=== PATIENT | male | born 1980 | race Caucasian/White ===

== ENCOUNTER 2018-11-18 14:16 | Emergency (ER) | END 2018-11-18 20:46 | disposition home or self-care (01) ==

== ENCOUNTER 2019-01-12 16:30 | Inpatient (IN) | payer OTHER, BC ==
[~2019-01-12] VITALS: Ht 167.6 cm; Wt 78.9 kg
[~2019-01-12 16:30] MED LIST: IBUP-1542 PO
[2019-01-12] MEDS ORDERED: ACETAMINOPHEN 325 MG TAB PO STA (16:56)
[2019-01-12] MEDS ORDERED: ALBUTEROL 0.083% (NEB) 2.5 MG/3 ML AMP NEB STA (16:56)
[2019-01-12] MEDS ORDERED: SODIUM CHLORIDE 0.9% 1L BAG IV* STA (16:56)
[2019-01-12] MEDS ORDERED: CEFEPIME 2GM/50 ML (PMX) 50 ML IVPB STA (16:56)
[2019-01-12] MEDS: VANCOMYCIN 1 GM (PMX) 250 ML IVPB ONE ×2 (17:30→18:06)
--- NOTE | 2019-01-12 19:06 | ERD ---
ER Documentation Chief Complaint Chief Complaint palpitations and sob since last night, sent by oncologist MARY KATE This is a 38-year-old man with a history of myeloma being treated with oral chemotherapy and immunotherapy. He states that he developed a cough with fever 3 days ago and he saw his doctor who today told him to come to the ER. He saw the doctor just prior to arrival. The patient on Friday went to urgent care where he was given some antibiotics and prednisone. Patient was evaluated today and sent here because he had a fever with low oxygen saturation. The patient states she is short of breath when he tries to walk or lay down. He has no short of breath when he is at rest. He has had a productive cough with yellow productive sputum for 3 days now no chest pain no GI symptoms no focal neurological complaints ROS All systems reviewed and are negative except as per history of present illness. Medications Home Meds Active Scripts Ibuprofen* (Motrin*) 600 Mg Tab, 600 MG PO Q8 PRN for PAIN AND/OR INFLAMMATION, #30 TAB Prov:RACHELE GARCIA MD 11/18/18 Allergies Allergies: Coded Allergies: No Known Allergy (Unverified , 11/18/18) PMhx/Soc History of Surgery: No Anesthesia Reaction: No Hx Neurological Disorder: No Hx Respiratory Disorders: No Hx Cardiac Disorders: No Hx Psychiatric Problems: No Hx Miscellaneous Medical Probl: Yes (MYELOMA) Hx Alcohol Use: No Hx Substance Use: No Hx Tobacco Use: No Smoking Status: Never smoker FmHx Family History: No coronary disease Physical Exam Vitals Vital Signs Date Temp Pulse Resp B/P (MAP) Pulse Ox O2 O2 Flow FiO2 Time Delivery Rate 01/12/19 98.8 155 18 129/86 95 Nasal 3.0 18:30 (100) Cannula 01/12/19 146 22 97 Nasal 2.0 17:59 Cannula 01/12/19 98.5 17:21 01/12/19 Nasal 2 17:05 Cannula 01/12/19 101.2 158 22 158/87 91 16:38 (110) Physical Exam Const: Well-developed, well-nourished Head: Atraumatic, normocephalic Eyes: Normal Conjunctiva, PERRLA, EOMI, normal sclera, no nystagmus ENT: Normal External Ears, Nose and Mouth, moist mucus membranes. Neck: Full range of motion. No meningismus, no lymphadenopathy. Resp: [Decreased breath sounds in both bases Cardio: Tachycardia, no murmurs, S1 S2 present Abd: Soft, non tender x 4, non distended. Normal bowel sounds, no guarding or rebound, no pulsitile abdominal masses or bruits Skin: No petechiae or rashes, no ecchymosis , no maculopapular rash Back: No midline or flank tenderness Ext: No cyanosis, or edema, FROM x 4, normal inspection, neurovascularly intact x 4 Neur: Awake and alert, STR 5/5 x 4, sensation intact x 4, no focal findings, cerebellum intact Psych: Normal Mood and Affect Result Diagram: 01/12/19 1708 01/12/19 170 Results 24 hrs Laboratory Tests Test 01/12/19 17:08 01/12/19 17:15 01/12/19 17:20 White Blood Count 7.8 10^3/ul Red Blood Count 3.13 10^6/ul Hemoglobin 9.7 g/dl Hematocrit 30.1 % Mean Corpuscular Volume 96.2 fl Mean Corpuscular Hemoglobin 31.0 pg Mean Corpuscular 32.2 g/dl Hemoglobin Concent Red Cell Distribution Width 13.9 % Platelet Count 355 10^3/UL Mean Platelet Volume 9.0 fl Immature Granulocytes % 0.800 % Neutrophils % 62.8 % Lymphocytes % 21.5 % Monocytes % 13.7 % Eosinophils % 0.8 % Basophils % 0.4 % Nucleated Red Blood Cells % 0.0 /100WBC Immature Granulocytes # 0.060 10^3/ul Neutrophils # 4.9 10^3/ul Lymphocytes # 1.7 10^3/ul Monocytes # 1.1 10^3/ul Eosinophils # 0.1 10^3/ul Basophils # 0.0 10^3/ul Nucleated Red Blood Cells # 0.0 10^3/ul Prothrombin Time 13.9 Sec Prothrombin Time Ratio 1.1 INR International 1.06 Normalized Ratio Activated Partial Thromboplast 33.9 Sec Time Sodium Level 139 mmol/L Potassium Level 4.2 mmol/L Chloride Level 101 mmol/L Carbon Dioxide Level 26 mmol/L Anion Gap 12 Blood Urea Nitrogen 6 mg/dl Creatinine 0.69 mg/dl Est Glomerular Filtrat > 60 mL/min Rate mL/min Glucose Level 99 mg/dl Calcium Level 10.2 mg/dl Total Bilirubin 0.2 mg/dl Direct Bilirubin 0.00 mg/dl Indirect Bilirubin 0.2 mg/dl Aspartate Amino 21 IU/L Transf (AST/SGOT) Alanine 31 IU/L Aminotransferase (ALT/SGPT) Alkaline Phosphatase 107 IU/L Troponin I < 0.012 ng/ml Total Protein 8.1 g/dl Albumin 4.7 g/dl Globulin 3.40 g/dl Albumin/Globulin Ratio 1.38 POC Venous Lactate 1.7 mmol/L Urine Color YELLOW Urine Clarity SLIGHTLY CLOUDY Urine pH 5.0 Urine Specific [place] 1.023 Urine Ketones TRACE mg/dL Urine Nitrite NEGATIVE mg/dL Urine Bilirubin NEGATIVE mg/dL Urine Urobilinogen NEGATIVE mg/dL Urine Leukocyte Esterase NEGATIVE Marla/ul Urine Microscopic RBC 0 /HPF Urine Microscopic WBC 2 /HPF Urine Mucus FEW /HPF Urine Hemoglobin 1+ mg/dL Urine Glucose NEGATIVE mg/dL Urine Total Protein 2+ mg/dl Current Medications Medications Dose Sig/Gregory Start Time Status Last (Trade) Ordered Route PRN Stop Time Admin Dose Reason Admin Sodium 2,290 ml BOLUS OVER 2 01/12/19 DC 01/12/19 Chloride HOURS STAT 16:56 17:30 (NS) IV* 01/12/19 16:59 650 mg ONCE STAT 01/12/19 DC Acetaminophen PO 16:56 (Tylenol 01/12/19 16:59 Tab) Cefepime HCl 50 ml @ ONCE STAT 01/12/19 DC 01/12/19 100 mls/hr IVPB 16:56 17:45 01/12/19 17:25 Vancomycin 250 ml @ ONCE ONCE 01/12/19 DC 01/12/19 HCl 125 mls/hr IVPB 17:00 18:06 01/12/19 18:59 Albuterol 7.5 mg ONCE STAT 01/12/19 DC 01/12/19 (Proventil NEB 16:56 17:58 0.083% (Neb)) 01/12/19 16:59 Procedures/MDM MR #: [id number] DOS: 01/12/19 165 Ordering MD: UMANG MENDES DO Location: E/R Room/Bed: PROCEDURE: XR Chest. CLINICAL INDICATION: Chest pain TECHNIQUE: Single AP view of the chest was obtained COMPARISON: CHEST 11/18/2018 FINDINGS: Heart is normal in size. Mediastinum is unremarkable. Right greater than left basilar patchy opacity. Costophrenic angles are clear. No pneumothorax. No acute osseous abnormality. IMPRESSION: Right greater than left basilar atelectasis or pneumonia. RPTAT: PP Physician Su Date Time Electronically viewed and signed by Thad Arenas Physician on 01/12/2019 17:48 ME/ CC: UMANG MENDES DO [id number] Code sepsis was called however the patient's lactic acid is 1.7. He does show bibasilar atelectasis/pneumonia. He was hypoxic on arrival at 91 and is 97 on nasal cannula. Due to his immunocompromise state with cancer and hypoxia with fever and cough we will admitted to the hospital. He did receive sepsis protocol IV fluids as well as cefepime and vancomycin. Will admit to panel. Patient is nontoxic and well-appearing Departure Diagnosis: Primary Impression: Bilateral pneumonia Pneumonia type: due to unspecified organism Lung location: lower lobe of lung Qualified Codes: J18.1 - Lobar pneumonia, unspecified organism Condition: Stable UMANG MENDES DO Jan 12, 2019 19:06
[2019-01-12] MEDS ORDERED: SOD CHLORIDE 0.9% 1,000 ML IV SCH (19:11)
[2019-01-12] MEDS ORDERED: LEVALBUTEROL (NEB) 1.25 MG/0.5 ML AMP INH STA (19:22)
[2019-01-12] MEDS ORDERED: ACETAMINOPHEN 325 MG TAB PO PRN ×2 (19:30→20:00)
[2019-01-12] MEDS ORDERED: ONDANSETRON 4 MG INJ IV PRN (19:30)
--- NOTE | 2019-01-12 19:56 | HP ---
Date/Time of Note Date/Time of Note DATE: 01/12/19 TIME: 19:46 Assessment/Plan VTE Prophylaxis SCD applied (from Nsg): No SCD contraindicated: other (no) Pharmacological prophylaxis: NA/contraindicated Pharm contraindication: low risk/ambulating Lines/Catheters IV Catheter Type (from Nrsg): Saline Lock Assessment/Plan Assessment/Plan 38 yo man with multiple myeloma on chemotherapy and immunotherapy presents with hypoxia, tachycardia, and chest infiltrate #Hypoxia #Infiltrate on CXR #Tachycardia - Differential: Sepsis from pneumonia vs PE vs hyperviscosity. Latter is less likely with normal protein gap. - Will get CTPA. - Empiric cefepime and vancomycin for possible pseudomonas and MRSA. - Fluid down on exam. Will bolus and continue IV fluids. - Will get echo #Multiple myeloma - Outpatient oncology followup. Dispo: Admit to tele DVT: Pending CTPA results GI: None Result Diagram: 01/12/19170701/12/191707 HPI/ROS Admit Date/Time Admit Date/Time Jan 12, 2019 Hx of Present Illness Mr. Borges is a pleasant 38 yo man with recently diagnosed myeloma who presents with cough and shortness of breath. He was diagnosed with multiple myeloma 2 months ago. Since then he's been on doxyrubicin, dexamethasone, and bortezomib. Last cycle was Dec 22. He does not take any medications regularly. About 2 weeks ago he reports having "chest congestion" with lots of nasal mucous production. During this time he began using two pillow at night. For 3 days he reports dry cough. He also reports R rib pain with deep inspiration. This morning he noticed shortness of breath doing minor activities like talking quickly on the phone. He called his oncologist who told him to go to the emergency room. In the ED he was febrile to 101.2, tachy to 150s (normal sinus on EKG), BP 129/86, saturating mid 90s on 3L NC but dyspneic. CXR shows R basilar infiltrate vs atelectasis. Anemic to 9.7, otherwise labs unremarkable. ROS He denies recent fever, chills, night sweats, weight loss, dysphagia, sore throat, nausea, vomiting, abdominal pain, abdominal distension, chest pain/pressure/palpitations, diarrhea, constipation, melena, dysuria, hematuria. PMH/Family/Social Past Medical History Multiple Myeloma on chemotherapy and immunotherapy Medications Current Medications Sodium Chloride 1,000 ml @ 80 mls/hr [id number] IV ; Start 01/12/19 at 19:11; Stop 01/13/19 at 07:40 Ondansetron HCl (Zofran Inj) 4 mg ER BRIDGE PRN IV NAUSEA/VOMITING; Start 01/12/19 at 19:30; Stop 01/13/19 at 19:29 Acetaminophen (Tylenol Tab) 650 mg ER BRIDGE PRN PO .MILD PAIN 1-3 OR TEMP; Start 01/12/19 at 19:30; Stop 01/13/19 at 19:29 Sodium Chloride 1,000 ml @ 75 mls/hr [id number] IV ; Start 01/12/19 at 19:40; Status UNV IV Flush (NS 3 ml) 3 ml PER PROTOCOL IV ; Start 01/12/19 at 20:00; Status UNV Acetaminophen (Tylenol Tab) 650 mg Q6H PRN PO .PAIN 1-3 OR TEMP; Start 01/12/19 at 20:00; Status UNV Coded Allergies: No Known Allergy (Unverified , 11/18/18) Past Surgical History Denies Social History Alcohol Use: none Smoking Status: Never smoker Drug Use: none Exam/Review of Systems Vital Signs Vitals Vital Signs Date Temp Pulse Resp B/P (MAP) Pulse Ox O2 O2 Flow FiO2 Time Delivery Rate 01/12/19 98.8 155 18 129/86 95 Nasal 3.0 18:30 (100) Cannula Exam Exam Gen: Well built man in some discomfort Eyes: PERRL, no icterus HEENT: Moist mucous membranes, clear oropharynx, no pharyngeal erythema Neck: No JVD. No lymphadenopathy. Card: Tachy, no murmurs Pulm: Clear to auscultation bilaterally. Abd: Soft, nontender, nondistended. Ext: Bilateral ankles with superficial ulcers and deformity. Skin: warm, dry, well perfused. FRANCISCA MACIAS MD Jan 12, 2019 19:56
[2019-01-12] MEDS ORDERED: SOD CHLORIDE 0.9% 100 ML ONE (19:59)
[2019-01-12] MEDS ORDERED: IOHEXOL 100 ML ONE (20:00)
[2019-01-12] MEDS ORDERED: NACL 0.9% 3 ML SYG IV SCH (20:00)
[2019-01-12] MEDS ORDERED: IOHEXOL 350MG/ML 50 ML BTL ONE (20:00)
[2019-01-12] MEDS ORDERED: VANCOMYCIN IV PER PHARMACY XX SCH (20:00)
[2019-01-12] MEDS ORDERED: PRED20TA PO (20:43)
[2019-01-12] MEDS ORDERED: ALBU18HF INHALATION (20:43)
[2019-01-12 20:52] VITALS: PULSE 153
[2019-01-12 21:00] VITALS: BP 114/77; PULSE 152; RESP 20
[2019-01-12 21:53] VITALS: Ht 167.6 cm; Wt 78.9 kg
[2019-01-12] MEDS ORDERED: VANCOMYCIN 500 MG (PMX) 100 ML IVPB SCH (22:30)
[2019-01-12] MEDS: SOD CHLORIDE 0.9% 1,000 ML IV SCH (22:35)
[2019-01-13] VITALS (12 sets, daily range): BP systolic 109–127; BP diastolic 74–85; PULSE 114–131; RESP 16–20
[2019-01-13] MEDS: CEFEPIME 2GM/50 ML (PMX) 50 ML IVPB SCH ×4 (00:43→21:05)
[2019-01-13] MEDS ORDERED: GUAIFENESIN 20 MG/ML 5ML CUP PO ONE ×2 (05:30→21:30)
[2019-01-13] MEDS: VANCOMYCIN 1 GM 250 ML IVPB SCH ×3 (06:01→22:21)
[2019-01-13] MEDS ORDERED: morphine 2 MG INJ IV PRN (09:30)
[2019-01-13] MEDS ORDERED: HYDROCODONE/APAP (5/325) TAB PO PRN (09:30)
[2019-01-13] MEDS: SOD CHLORIDE 0.9% 1,000 ML IV SCH (10:20)
[2019-01-13] MEDS: ENOXAPARIN 40 MG/0.4 ML SYG SC SCH (10:27)
[2019-01-13] MEDS: HYDROCODONE/APAP (10/325) TAB PO PRN ×2 (13:46→21:03)
--- NOTE | 2019-01-13 14:52 | PN ---
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 - Encouraged patient to use opioid analgesics as needed - PE ruled out on CTPA - Will continue empiric cefepime and vancomycin for possible pseudomonas and MRSA. - continue IV fluids. - Now on room air - Will also get physical therapy. #Sternal fracture #Vertebral compression fractures - Outpatient ortho followup. #Multiple myeloma - Outpatient oncology followup. DVT: Lovenox GI: None Result Diagram: 01/13/1945201/13/19452 Subjective 24 Hr Interval Summary Free Text/Dictation No acute overnight events. Heart rate has gradually decreased from 150 down to 120. He is aware of vertebral fractures and follows an orthopedic surgeon. He continues to have pain with deep inspiration. Off nasal cannula to room air, breathing comfortably. Exam/Review of Systems Exam Vitals Vital Signs Date Temp Pulse Resp B/P (MAP) Pulse Ox O2 O2 Flow FiO2 Time Delivery Rate 01/13/19 124 12:21 01/13/19 98.7 18 116/85 93 Nasal 11:51 (95) Cannula 01/13/19 2.0 08:00 Intake and Output 01/12/19 01/12/19 01/13/19 1515:00 23:00 07:00 IntakeIntake Total 2540 ml 1680 ml OutputOutput Total 600 ml 2000 ml BalanceBalance 1940 ml -320 ml Exam Gen: Well built man in some discomfort Eyes: PERRL, no icterus HEENT: Moist mucous membranes, clear oropharynx, no pharyngeal erythema Neck: No JVD. No lymphadenopathy. Card: Tachy, no murmurs Chest: Very tender mid sternum. Pulm: Very diminished respiratory expansion. Abd: Soft, nontender, nondistended. Ext: Bilateral ankles with superficial ulcers and deformity. Skin: warm, dry, well perfused. Results Results 24hrs Laboratory Tests Test 01/12/19 17:08 01/12/19 17:15 01/12/19 17:20 01/12/19 19:24 White Blood Count 7.8 Red Blood Count 3.13 L Hemoglobin 9.7 L Hematocrit 30.1 L Mean Corpuscular 96.2 Volume Mean Corpuscular 31.0 Hemoglobin Mean Corpuscular 32.2 Hemoglobin Concen t Red Cell 13.9 Distribution Width Platelet Count 355 # Mean Platelet 9.0 Volume Immature 0.800 H Granulocytes % Neutrophils % 62.8 Lymphocytes % 21.5 Monocytes % 13.7 H Eosinophils % 0.8 Basophils % 0.4 Nucleated Red 0.0 Blood Cells % Immature 0.060 H Granulocytes # Neutrophils # 4.9 Lymphocytes # 1.7 Monocytes # 1.1 H Eosinophils # 0.1 Basophils # 0.0 Nucleated Red 0.0 Blood Cells # Prothrombin Time 13.9 Prothrombin Time 1.1 Ratio INR International 1.06 Normalized Ratio Activated 33.9 Partial Thrombopl ast Time Sodium Level 139 Potassium Level 4.2 Chloride Level 101 Carbon Dioxide 26 Level Anion Gap 12 Blood Urea 6 L Nitrogen Creatinine 0.69 Est Glomerular > 60 Filtrat Rate mL/min Glucose Level 99 Calcium Level 10.2 Total Bilirubin 0.2 Direct Bilirubin 0.00 Indirect 0.2 Bilirubin Aspartate Amino 21 Transf (AST/SGOT) Alanine 31 Aminotransferase (ALT/SGPT) Alkaline 107 Phosphatase Troponin I < 0.012 Total Protein 8.1 Albumin 4.7 Globulin 3.40 H Albumin/Globulin 1.38 Ratio POC Venous 1.7 2.2 *H Lactate Urine Color YELLOW Urine Clarity SLIGHTLY CLOUDY A Urine pH 5.0 Urine Specific 1.023 [place] Urine Ketones TRACE A Urine Nitrite NEGATIVE Urine Bilirubin NEGATIVE Urine NEGATIVE Urobilinogen Urine Leukocyte NEGATIVE Esterase Urine Microscopic 0 RBC Urine Microscopic 2 WBC Urine Mucus FEW A Urine Hemoglobin 1+ H Urine Glucose NEGATIVE Urine Total 2+ H Protein Test 01/12/19 23:04 01/13/19 04:53 Lactic Acid Level 1.9 White Blood Count 7.8 Red Blood Count 2.64 L Hemoglobin 8.0 L Hematocrit 25.9 L Mean Corpuscular 98.1 Volume Mean Corpuscular 30.3 Hemoglobin Mean Corpuscular 30.9 L Hemoglobin Concen t Red Cell 14.0 Distribution Width Platelet Count 312 Mean Platelet 9.2 Volume Immature 0.500 H Granulocytes % Neutrophils % 63.3 Lymphocytes % 22.6 Monocytes % 13.2 H Eosinophils % 0.3 Basophils % 0.1 Nucleated Red 0.0 Blood Cells % Immature 0.040 H Granulocytes # Neutrophils # 4.9 Lymphocytes # 1.8 Monocytes # 1.0 H Eosinophils # 0.0 Basophils # 0.0 Nucleated Red 0.0 Blood Cells # Sodium Level 142 Potassium Level 3.7 Chloride Level 101 Carbon Dioxide 24 Level Anion Gap 17 H Blood Urea 4 L Nitrogen Creatinine 0.57 L Est Glomerular > 60 Filtrat Rate mL/min Glucose Level 99 Hemoglobin A1c 5.2 Calcium Level 8.8 Phosphorus Level 4.0 Magnesium Level 1.9 Total Bilirubin 0.2 Direct Bilirubin 0.00 Indirect 0.2 Bilirubin Aspartate Amino 15 Transf (AST/SGOT) Alanine 25 Aminotransferase (ALT/SGPT) Alkaline 74 Phosphatase Total Protein 6.8 # Albumin 3.9 Globulin 2.90 Albumin/Globulin 1.34 Ratio Thyroid 1.690 Stimulating Hormone (TSH) Medications Medication Current Medications Sodium Chloride 1,000 ml @ 75 mls/hr [id number] IV Last administered on 01/12/19at 22:35; Admin Dose 75 MLS/HR; Start 01/12/19 at 21:00 IV Flush (NS 3 ml) 3 ml PER PROTOCOL IV ; Start 01/12/19 at 20:00 Acetaminophen (Tylenol Tab) 650 mg Q6H PRN PO .PAIN 1-3 OR TEMP Last administered on 01/13/19at 05:01; Admin Dose 650 MG; Start 01/12/19 at 20:00 Cefepime HCl 50 ml @ 100 mls/hr Q8 IVPB Last administered on 01/13/19at 13:45; Admin Dose 100 MLS/HR; Start 01/12/19 at 23:30 Vancomycin HCl (Vanco Iv Per Pharmacy) VANCOMYCIN PER PHARMACY PER PROTOCOL XX ; Start 01/12/19 at 20:00 Vancomycin HCl 250 ml @ 125 mls/hr Q8H IVPB Last administered on 01/13/19at 14:05; Admin Dose 125 MLS/HR; Start 01/13/19 at 06:00 Miscellaneous Information (*Rx Drug Level Order Reminder*) VANCO TROUGH @ 2,100 ON... ONCE ONCE XX ; Start 01/13/19 at 21:00; Stop 01/13/19 at 21:01 Enoxaparin Sodium (Lovenox) 40 mg DAILY SC Last administered on 01/13/19at 10:27; Admin Dose 40 MG; Start 01/13/19 at 09:30 Morphine Sulfate (morphine) 2 mg Q2H PRN IV SEVERE PAIN LEVEL 7-10; Start 01/13/19 at 09:30 Acetaminophen/ Hydrocodone Bitart ([place] ()) 1 tab Q4H PRN PO MODERATE PAIN LEVEL 4-6 Last administered on 01/13/19at 13:46; Admin Dose 1 TAB; Start 01/13/19 at 11:00 FRANCISCA MACIAS MD Jan 13, 2019 14:52
[2019-01-14] VITALS: BP 116/76; PULSE 112; PULSE 97; RESP 18
[2019-01-14] MEDS: SOD CHLORIDE 0.9% 1,000 ML IV SCH (00:49)
[2019-01-14 03:55] VITALS: BP 121/83; PULSE 109; RESP 18
[2019-01-14 04:00] VITALS: PULSE 102
[2019-01-14] MEDS: CEFEPIME 2GM/50 ML (PMX) 50 ML IVPB SCH (05:23)
[2019-01-14] MEDS: VANCOMYCIN 1 GM 250 ML IVPB SCH (06:21)
[2019-01-14] MEDS: HYDROCODONE/APAP (10/325) TAB PO PRN ×2 (06:26→11:49)
[2019-01-14] MEDS: GUAIFENESIN/DM 5ML CUP PO PRN ×2 (07:46→11:49)
[2019-01-14 07:52] VITALS: BP 122/80; PULSE 111; RESP 19
[2019-01-14 08:22] VITALS: PULSE 110
[2019-01-14] MEDS: ENOXAPARIN 40 MG/0.4 ML SYG SC SCH (08:51)
[2019-01-14] MEDS ORDERED: HYDR-3980 PO (10:23)
[2019-01-14] MEDS ORDERED: LEVO750T8 PO (10:23)
[2019-01-14] MEDS ORDERED: GUAI473L22 PO (10:23)
--- NOTE | 2019-01-14 10:27 | PDOCDIS ---
Discharge Instructions DIAGNOSIS Discharge Diagnosis Acute sternal body fracture Chronic vertebral compression fractures Right lower lobe atelectasis Community-acquired pneumonia CONDITION [id number] Patient Condition: Vafqk0s Fair HOME CARE INSTRUCTIONS: Krezz2Yb Diet Instructions: [id number] Regular ACTIVITY: [id number] Activity Restrictions: [id number] No Restrictions FOLLOW UP/APPOINTMENTS Follow-up Plan 1. Take all medications as prescribed. 2. Do not drive or operate machinery after using opioid analgesics including [place] and codeine syrup 3. You can also take bidz-qxz-xinekfg cough syrup containing guaifenesin to suppress cough. 4. Opioids increase your risk of constipation. You can get jkmw-mnb-blngxga Miralax or other laxatives. 5. See your oncologist and orthopedic surgeon as scheduled. 6. Return to the emergency department for worsening shortness of breath at rest or chest pain. FRANCISCA MACIAS MD Jan 14, 2019 10:26
[2019-01-14 11:35] VITALS: BP 120/85; PULSE 119; RESP 18
--- NOTE | 2019-01-14 14:35 | RADRPT ---
Echocardiogram Report Patient Name: Freya FISCHERtient ID: [id number] : 1980 (38y 6m)Study Date: 01/13/2019 8:32:33 AM Gender: MAccession #: [id number] Tech: Zackery Martínez [facility] Location: [address] Ref.Physician: FRANCISCA MACIAS Height(Cm): BSA: Weight(Kg): Quality: AdequateAccount #: Procedures: Echocardiographic Report: Transthoracic echocardiogram with complete 2D, M-Mode, and doppler examination. Indications: Tachycardia, orthopnea. Measurements: 2D/M Mode Doppler Measurement Value Normal Range Measurement Value Normal Range LVIDd 2D 4.3 [ 4.2 - 5.8 ] cm AV Peak Dionisio 1.4 [ 100.0 - 170.0 ] cm/sec LVIDs 2D 2.8 [ 2.5 - 4.0 ] cm AV Peak PG 8.0 [ 2.0 - 9.0 ] mmHg LVPWd 2D 1.0 [ 0.6 - 1.0 ] cm LVOT Peak Dionisio 1.2 [ 70.0 - 110.0 ] cm/sec IVSd 2D 1.1 [ 0.6 - 1.0 ] cm LVOT Peak PG 6.0 [ 2.0 - 6.0 ] mmHg IVS/LVPW 2D 1.0 ratio MV E Peak Dionisio 0.7 [ 60.0 - 130.0 ] cm/sec AoR Diam 2D 2.9 [ 2.6 - 3.4 ] cm MV A Peak Dionisio 1.1 [ 100.0 - 120.0 ] cm/sec LA/Ao 2D 1 ratio MV E/A 0.6 [ 0.8 - 1.5 ] ratio LA Dimen 2D 3.3 [ 3.0 - 4.0 ] cm MV Decel Time 123 [ 104 - 258 ] msec Lat E` Dionisio 0.1 [ 10.0 - 15.0 ] cm/sec Med E` Dionisio 0.2 cm/sec MV E/A 0.6 [ 0.8 - 1.5 ] ratio TR Peak Dionisio 2.3 [ 100.0 - 280.0 ] cm/sec TR Peak PG 22.0 mmHg RVSP 30.0 [ 10.0 - 36.0 ] mmHg Findings: Left Ventricle: Normal left ventricular systolic function. Normal left ventricular cavity size. Normal left ventricular wall thickness. Ejection fraction is visually estimated at 60 %. Tissue Doppler/Mitral Doppler indices are consistent with impaired relaxation (Stage I diastolic dysfunction). Right Ventricle: Normal right ventricular size. Normal right ventricular systolic function. Left Atrium: The left atrium is normal in size. Right Atrium: The right atrium is normal in size. Mitral Valve: Normal appearance of the mitral valve. Mild mitral leaflet calcification. Trace mitral regurgitation. Aortic Valve: Normal appearance of the aortic valve. No significant aortic stenosis or insufficiency. Tricuspid Valve: Normal appearance of the tricuspid valve. Estimated peak PA systolic pressure 30 mmHg. There is mild tricuspid regurgitation. Pulmonic Valve: Pulmonic valve not well visualized. Pericardium: Normal pericardium with no significant pericardial effusion. Aorta: Normal aortic root. IVC: Dilated IVC with respiratory collapse consistent with elevated right atrial pressure. Conclusions: Normal left ventricular systolic function. Grade 1 diastolic dysfunction. Mild tricuspid regurgitation with normal pulmonary pressures. Electronically Signed By: Bharati Escalante 2019-01-14 14:35:24 PST
--- NOTE | 2019-01-14 15:18 | DS ---
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 He was diagnosed with multiple myeloma 2 months ago. Since then he's been on doxyrubicin, dexamethasone, and bortezomib. Last cycle was Dec 22. He does not take any medications regularly. About 2 weeks ago he reports having "chest congestion" with lots of nasal mucous production. During this time he began using two pillow at night. For 3 days he reports dry cough. He also reports R rib pain with deep inspiration. This morning he noticed shortness of breath doing minor activities like talking quickly on the phone. He called his oncologist who told him to go to the emergency room. In the ED he was febrile to 101.2, tachy to 150s (normal sinus on EKG), BP 129/86, saturating mid 90s on 3L NC but dyspneic. CXR shows R basilar infiltrate vs atelectasis. Anemic to 9.7, otherwise labs unremarkable. Hospital Course CT angiogram was done which was negative for PE. It did however show chronic vertebral compression fractures and an acute sternal body fracture. On admission his heart rate was in the 150s and he had rapid shallow respirations with RLL atelectasis. After getting IV fluids and opioid analgesics, pain improved, HR improved. He was breathing comfortably on room air and was able to walk with physical therapy assistance. He also had a echo showing grade I diastolic dysfunction, 60% EF, otherwise no major abnormalities. He will be discharged with [place] and a course of levofloxacin for pneumonia. Home Meds Active Scripts Hydrocodone/Acetaminophen ([place] 10-325 Tablet) 1 Each Tablet, 1 EACH PO Q4 PRN for PAIN, #30 TAB Prov:FRANCISCA MACIAS MD 01/14/19 Levofloxacin* (Levofloxacin*) 750 Mg Tablet, 750 MG PO DAILY, #5 TAB Prov:FRANCISCA MACIAS MD 01/14/19 Guaifenesin-Codeine Phosphate* (Guaifenesin* AC Cough Syrup) 473 Ml Liquid, 10 ML PO Q4H PRN for COUGH, #1 BOTTLE Prov:FRANCISCA MACIAS MD 01/14/19 Reported Medications Albuterol Sulfate* (Ventolin HFA*) 18 Gm Hfa.aer.ad, 2 PUFF INHALATION Q4H, #1 INHALER 01/12/19 Prednisone* (Prednisone*) 20 Mg Tab, 20 MG PO for 6 Days, #12 01/12/19 Discontinued Scripts Ibuprofen* (Motrin*) 600 Mg Tab, 600 MG PO Q8 PRN for PAIN AND/OR INFLAMMATION, #30 TAB Prov:RACHELE GARCIA MD 11/18/18 Follow-up Plan 1. Take all medications as prescribed. 2. Do not drive or operate machinery after using opioid analgesics including [place] and codeine syrup 3. You can also take djbe-brx-iqwetjk cough syrup containing guaifenesin to suppress cough. 4. Opioids increase your risk of constipation. You can get lyys-ovl-uqhpytd Miralax or other laxatives. 5. See your oncologist and orthopedic surgeon as scheduled. 6. Return to the emergency department for worsening shortness of breath at rest or chest pain. Primary Care Provider Not On Staff Doctor Time spent on discharge: > 30 minutes Pending Labs Laboratory Tests Test 01/13/19 20:44 01/14/19 05:17 Vancomycin Level Trough 14.6 ug/ml (10.0-20.0) White Blood Count 5.7 10^3/ul (4.8-10.8) Red Blood Count 2.55 10^6/ul (4.70-6.10) Hemoglobin 7.9 g/dl (14.0-18.0) Hematocrit 24.9 % (42.0-52.0) Mean Corpuscular Volume 97.6 fl (82.0-101.0) Mean Corpuscular Hemoglobin 31.0 pg (29.0-33.0) Mean Corpuscular 31.7 g/dl (32.0-37.0) Hemoglobin Concent Red Cell Distribution Width 14.0 % (11.5-14.5) Platelet Count 277 10^3/UL (140-415) Mean Platelet Volume 9.5 fl (7.4-10.4) Immature Granulocytes % 1.100 % (0.001-0.429) Neutrophils % 60.2 % (39.0-77.0) Lymphocytes % 23.0 % (15.0-51.0) Monocytes % 13.7 % (0.0-11.0) Eosinophils % 1.6 % (0.0-7.0) Basophils % 0.4 % (0.0-2.0) Nucleated Red Blood Cells % 0.0 /100WBC (0.0-0.0) Immature Granulocytes # 0.060 10^3/ul (0.0-0.031) Neutrophils # 3.4 10^3/ul (1.6-7.5) Lymphocytes # 1.3 10^3/ul (0.8-2.9) Monocytes # 0.8 10^3/ul (0.3-0.9) Eosinophils # 0.1 10^3/ul (0.0-0.5) Basophils # 0.0 10^3/ul (0.0-0.1) Nucleated Red Blood Cells # 0.0 10^3/ul (0.0-0.0) Sodium Level 142 mmol/L (135-144) Potassium Level 4.0 mmol/L (3.5-5.1) Chloride Level 106 mmol/L (97-110) Carbon Dioxide Level 23 mmol/L (21-31) Anion Gap 13 (5-13) Blood Urea Nitrogen 6 mg/dl (7-20) Creatinine 0.60 mg/dl (0.61-1.24) Est Glomerular Filtrat > 60 mL/min (>60) Rate mL/min Glucose Level 86 mg/dl (70-220) Calcium Level 8.9 mg/dl (8.4-10.2) Phosphorus Level 3.5 mg/dl (2.5-4.9) Magnesium Level 2.2 mg/dl (1.7-2.5) Iron Level 33 ug/dl (35-150) Total Iron Binding Capacity 234 ug/dl (241-421) Percent Iron Saturation 14 % SAT (22-52) Ferritin 655.0 ng/ml (17.9-464.0) Vitamin B12 Level 539 pg/ml (239-931) Folate 11.8 ng/ml (2.8-20.0) FRANCISCA MACIAS MD Jan 14, 2019 15:18
== END 2019-01-14 12:15 | disposition home or self-care (01) | DRG 564 ==
LOC: E/R 16:30 → 6WM 19:12
PROVIDERS: ADMIT Internal Medicine; ATTEND Internal Medicine
DX: S22.20XA Unspecified fracture of sternum, initial encounter for closed fracture (principal); J18.9 Pneumonia, unspecified organism; S22.059A Unspecified fracture of T5-T6 vertebra, initial encounter for closed fracture; C90.00 Multiple myeloma not having achieved remission; J98.11 Atelectasis; R09.02 Hypoxemia; Z79.899 Other long term (current) drug therapy; X58.XXXA Exposure to other specified factors, initial encounter
CPT/HCPCS: 36415; 71045; 71275; 80048; 80053; 80202; 81001; 82607; 82728; 82746; 83036; 83540; 83605; 83735; 84100; 84443; 84484; 85025; 85610; 85730; 87040; 87086; 87400; 93005; 93306; 94644; 94664; 96365; 96375; 97162; J0692; J1650; J3370; J7030; Q9967